=== PATIENT | male | born 1950 | race Caucasian/White ===

== ENCOUNTER 2019-01-13 13:16 | Inpatient (IN) | payer MEDICARE, OTHER ==
[2019-01-13 13:59] LABS: ADD MAN DIFF? NO
[2019-01-13 14:01] LABS: BASOPHILS % 0.3 % (0.0-2.0); EOSINOPHILS # 0.1 10^3/ul (0.0-0.5); EOSINOPHILS % 1.6 % (0.0-7.0); HEMATOCRIT 40.8 % (42.0-52.0); HEMOGLOBIN 13.5 g/dl (14.0-18.0); LYMPHOCYTES % 25.3 % (15.0-51.0); MEAN CORPUSCULAR HEMOGLOBIN 32.8 pg (29.0-33.0); MEAN CORPUSCULAR HGB CONC 33.1 g/dl (32.0-37.0); MEAN PLATELET VOLUME 10.4 fl (7.4-10.4); MONOCYTE # 0.7 10^3/ul (0.3-0.9); MONOCYTES % 8.9 % (0.0-11.0); NEUTROPHIL # 4.9 10^3/ul (1.6-7.5); NEUTROPHILS % 63.3 % (39.0-77.0); PLATELET COUNT 200 10^3/UL (140-415); RED BLOOD COUNT 4.12 10^6/ul (4.70-6.10); RED CELL DISTRIBUTION WIDTH 12.8 % (11.5-14.5)
[2019-01-13 14:01] LABS: WHITE BLOOD COUNT 7.7 10^3/ul (4.8-10.8)
[2019-01-13 14:20] LABS: INR 0.96; PROTIME 12.9 Sec (11.9-14.9)
[2019-01-13 14:21] LABS: PARTIAL THROMBOPLASTIN TIME 27.4 Sec (23.0-35.0)
[2019-01-13 14:23] LABS: ALANINE AMINOTRANSFERASE 16 IU/L (13-69); ALBUMIN/GLOBULIN RATIO 1.33; ALKALINE PHOSPHATASE 43 IU/L (42-121); ANION GAP 6 (5-13); ASPARTATE AMINO TRANSFERASE 23 IU/L (15-46); BILIRUBIN,INDIRECT 0.9 mg/dl (0-1.1); BILIRUBIN,TOTAL 0.9 mg/dl (0.2-1.3); CALCIUM 9.1 mg/dl (8.4-10.2); CARBON DIOXIDE 27 mmol/L (21-31); CHLORIDE 107 mmol/L (97-110); CHOL/HDL RATIO 3.7 RATIO; CHOLESTEROL 185 mg/dl (100-200); Estimated GFR > 60 mL/min (>60); GLUCOSE 135 mg/dl (70-220); HDL CHOLESTEROL 50 mg/dl (31-75); LDL CHOLESTEROL,CALCULATED 114 mg/dl; POTASSIUM 4.5 mmol/L (3.5-5.1); SODIUM 140 mmol/L (135-144); TRIGLYCERIDES 105 mg/dl (0-149)
[2019-01-13 14:28] LABS: BLOOD UREA NITROGEN 26 mg/dl (7-20); CREATININE 0.59 mg/dl (0.61-1.24)
[2019-01-13] MEDS ORDERED: LIDOCAINE 1% (MDV) 20 ML INJ (15:38)
[2019-01-13] MEDS ORDERED: HEPARIN 1000 UNITS/ML 10 ML INJ (15:38)
[2019-01-13] MEDS ORDERED: MIDAZOLAM 1 MG/ML 2 ML INJ (15:38)
[2019-01-13] MEDS ORDERED: FENTAnyl 50 MCG/ML VIAL (15:39)
[2019-01-13] MEDS ORDERED: NITROGLYCERIN (IC) 100 MCG/ML INJ (15:39)
[2019-01-13] MEDS ORDERED: VERAPAMIL 5 MG INJ (15:39)
[2019-01-13] MEDS ORDERED: IODIXANOL LOCM 100 ML BTL ×3 (16:38→17:25)
[2019-01-13] MEDS ORDERED: IOHEXOL 350MG/ML 50 ML BTL (16:39)
[2019-01-13] MEDS ORDERED: TICAGRELOR 90 MG TABLET (17:35)
[2019-01-13] MEDS ORDERED: ASPIRIN 325 MG TAB (17:43)
[2019-01-13] MEDS ORDERED: morphine 2 MG INJ IV (18:00)
[2019-01-13] MEDS ORDERED: ONDANSETRON 4 MG INJ IV (18:00)
[2019-01-13] MEDS ORDERED: ACETAMINOPHEN 325 MG TAB PO (18:00)
[2019-01-13] MEDS ORDERED: OXYCODONE/ACETAMINOPHEN (5/325) TAB PO (18:00)
[2019-01-13] MEDS ORDERED: AL HYDROX/MG HYDROX/SIMETH 30 ML CUP PO (18:00)
[2019-01-13] MEDS: SOD CHLORIDE 0.9% 1,000 ML IV (18:19)
[2019-01-13] MEDS: TICAGRELOR 90 MG TABLET PO (22:07)
[2019-01-13] MEDS: ZOLPIDEM 5 MG TAB PO (23:47)
[2019-01-14] MEDS: ASPIRIN (EC) 81 MG TAB PO (08:07)
[2019-01-14] MEDS: TICAGRELOR 90 MG TABLET PO ×2 (08:12→20:59)
[2019-01-14 08:44] LABS: ADD MAN DIFF? NO
[2019-01-14 08:49] LABS: WHITE BLOOD COUNT 7.8 10^3/ul (4.8-10.8)
[2019-01-14 08:49] LABS: BASOPHILS % 0.4 % (0.0-2.0); EOSINOPHILS # 0.1 10^3/ul (0.0-0.5); EOSINOPHILS % 1.4 % (0.0-7.0); HEMATOCRIT 39.1 % (42.0-52.0); HEMOGLOBIN 12.8 g/dl (14.0-18.0); LYMPHOCYTES # 1.7 10^3/ul (0.8-2.9); LYMPHOCYTES % 21.4 % (15.0-51.0); MEAN CORPUSCULAR HEMOGLOBIN 32.3 pg (29.0-33.0); MEAN CORPUSCULAR HGB CONC 32.7 g/dl (32.0-37.0); MEAN CORPUSCULAR VOLUME 98.7 fl (82.0-101.0); MONOCYTE # 0.9 10^3/ul (0.3-0.9); MONOCYTES % 10.9 % (0.0-11.0); NEUTROPHIL # 5.1 10^3/ul (1.6-7.5); NEUTROPHILS % 65.3 % (39.0-77.0); PLATELET COUNT 183 10^3/UL (140-415); RED BLOOD COUNT 3.96 10^6/ul (4.70-6.10); RED CELL DISTRIBUTION WIDTH 12.9 % (11.5-14.5)
[2019-01-14 09:08] LABS: ANION GAP 8 (5-13); BLOOD UREA NITROGEN 23 mg/dl (7-20); CALCIUM 9.1 mg/dl (8.4-10.2); CARBON DIOXIDE 29 mmol/L (21-31); CHLORIDE 105 mmol/L (97-110); CREATININE 0.74 mg/dl (0.61-1.24); Estimated GFR > 60 mL/min (>60); GLUCOSE 127 mg/dl (70-220); POTASSIUM 4.8 mmol/L (3.5-5.1); SODIUM 142 mmol/L (135-144)
[2019-01-14] MEDS: ACCU-CHEK XX ×3 (11:22→21:00)
[2019-01-14] MEDS: LINAGLIPTIN 5 MG TABLET PO (11:25)
[2019-01-14] MEDS: INSULIN ASPART [NOVOLOG] 3 ML PEN SC ×3 (11:26→21:00)
[2019-01-14] MEDS ORDERED: GLUCAGON 1 MG INJ IM (11:30)
[2019-01-14] MEDS ORDERED: GLUCOSE GEL 15 GRAM TUBE BUCCAL (11:30)
[2019-01-14] MEDS ORDERED: GLUCOSE GEL 15 GRAM TUBE PO ×2 (11:30)
[2019-01-14] MEDS ORDERED: DEXTROSE 50% 50 ML SYRINGE IV ×2 (11:30)
[2019-01-14] MEDS: LISINOPRIL 10 MG TAB PO (16:07)
[2019-01-14] MEDS: ATORVASTATIN 20 MG TAB PO (20:53)
[2019-01-14] MEDS: ZOLPIDEM 5 MG TAB PO (22:14)
[2019-01-15 06:54] LABS: ADD MAN DIFF? NO
[2019-01-15 07:02] LABS: WHITE BLOOD COUNT 7.3 10^3/ul (4.8-10.8)
[2019-01-15 07:02] LABS: BASOPHILS % 0.3 % (0.0-2.0); EOSINOPHILS # 0.1 10^3/ul (0.0-0.5); EOSINOPHILS % 1.8 % (0.0-7.0); HEMATOCRIT 39.2 % (42.0-52.0); HEMOGLOBIN 13.1 g/dl (14.0-18.0); LYMPHOCYTES # 1.5 10^3/ul (0.8-2.9); LYMPHOCYTES % 20.7 % (15.0-51.0); MEAN CORPUSCULAR HEMOGLOBIN 32.7 pg (29.0-33.0); MEAN CORPUSCULAR HGB CONC 33.4 g/dl (32.0-37.0); MEAN CORPUSCULAR VOLUME 97.8 fl (82.0-101.0); MEAN PLATELET VOLUME 10.4 fl (7.4-10.4); MONOCYTE # 0.8 10^3/ul (0.3-0.9); NEUTROPHIL # 4.8 10^3/ul (1.6-7.5); NEUTROPHILS % 65.4 % (39.0-77.0); PLATELET COUNT 178 10^3/UL (140-415); RED BLOOD COUNT 4.01 10^6/ul (4.70-6.10); RED CELL DISTRIBUTION WIDTH 12.7 % (11.5-14.5)
[2019-01-15 07:19] LABS: ANION GAP 9 (5-13); BLOOD UREA NITROGEN 20 mg/dl (7-20); CALCIUM 9.1 mg/dl (8.4-10.2); CARBON DIOXIDE 25 mmol/L (21-31); CHLORIDE 107 mmol/L (97-110); CREATININE 0.57 mg/dl (0.61-1.24); Estimated GFR > 60 mL/min (>60); GLUCOSE 144 mg/dl (70-220); MAGNESIUM 1.7 mg/dl (1.7-2.5); POTASSIUM 4.1 mmol/L (3.5-5.1); SODIUM 141 mmol/L (135-144)
[2019-01-15] MEDS: INSULIN ASPART [NOVOLOG] 3 ML PEN SC ×4 (07:24→20:17)
[2019-01-15] MEDS: ACCU-CHEK XX ×4 (07:24→20:17)
[2019-01-15 07:46] LABS: HEMOGLOBIN A1C 6.8 % (0-5.9)
[2019-01-15] MEDS: LISINOPRIL 10 MG TAB PO (08:25)
[2019-01-15] MEDS: LINAGLIPTIN 5 MG TABLET PO (08:26)
[2019-01-15] MEDS: ASPIRIN (EC) 81 MG TAB PO (08:26)
[2019-01-15] MEDS: TICAGRELOR 90 MG TABLET PO ×2 (08:28→20:17)
[2019-01-15] MEDS ORDERED: LIDOCAINE 1% (MDV) 20 ML INJ (10:27)
[2019-01-15] MEDS ORDERED: BIVALIRUDIN 250MG /NS 50 ML 50 ML IVPB (10:27)
[2019-01-15] MEDS ORDERED: IODIXANOL LOCM 100 ML BTL ×2 (10:27→11:40)
[2019-01-15] MEDS ORDERED: MIDAZOLAM 1 MG/ML 2 ML INJ (10:28)
[2019-01-15] MEDS ORDERED: FENTAnyl 50 MCG/ML VIAL (10:28)
[2019-01-15] MEDS ORDERED: NITROGLYCERIN (IC) 100 MCG/ML INJ ×2 (10:28→10:43)
[2019-01-15] MEDS ORDERED: IOHEXOL 350MG/ML 50 ML BTL (11:40)
[2019-01-15] MEDS ORDERED: ONDANSETRON 4 MG INJ IV (13:00)
[2019-01-15] MEDS ORDERED: ZOLPIDEM 5 MG TAB PO (13:00)
[2019-01-15] MEDS ORDERED: ACETAMINOPHEN 325 MG TAB PO (13:00)
[2019-01-15] MEDS ORDERED: morphine 2 MG INJ IV (13:00)
[2019-01-15] MEDS ORDERED: AL HYDROX/MG HYDROX/SIMETH 30 ML CUP PO (13:00)
[2019-01-15] MEDS ORDERED: OXYCODONE/ACETAMINOPHEN (5/325) TAB PO (13:00)
[2019-01-15] MEDS: BIVALIRUDIN 250MG /NS 50 ML 50 ML IVPB (14:00)
[2019-01-15] MEDS: SOD CHLORIDE 0.9% 1,000 ML IV (14:24)
[2019-01-15] MEDS: ATORVASTATIN 20 MG TAB PO (20:17)
[2019-01-15] MEDS: ZOLPIDEM 5 MG TAB PO (23:20)
[2019-01-16 05:55] LABS: ADD MAN DIFF? NO
[2019-01-16 05:57] LABS: WHITE BLOOD COUNT 7.9 10^3/ul (4.8-10.8)
[2019-01-16 05:57] LABS: BASOPHILS % 0.3 % (0.0-2.0); EOSINOPHILS # 0.2 10^3/ul (0.0-0.5); HEMATOCRIT 37.3 % (42.0-52.0); HEMOGLOBIN 12.4 g/dl (14.0-18.0); LYMPHOCYTES # 1.6 10^3/ul (0.8-2.9); LYMPHOCYTES % 19.7 % (15.0-51.0); MEAN CORPUSCULAR HEMOGLOBIN 32.7 pg (29.0-33.0); MEAN CORPUSCULAR HGB CONC 33.2 g/dl (32.0-37.0); MEAN CORPUSCULAR VOLUME 98.4 fl (82.0-101.0); MEAN PLATELET VOLUME 10.5 fl (7.4-10.4); MONOCYTES % 13.2 % (0.0-11.0); PLATELET COUNT 185 10^3/UL (140-415); RED BLOOD COUNT 3.79 10^6/ul (4.70-6.10); RED CELL DISTRIBUTION WIDTH 12.7 % (11.5-14.5)
[2019-01-16 06:33] LABS: ANION GAP 6 (5-13); BLOOD UREA NITROGEN 23 mg/dl (7-20); CARBON DIOXIDE 26 mmol/L (21-31); CHLORIDE 109 mmol/L (97-110); CREATINE KINASE 116 IU/L (23-200); CREATININE 0.71 mg/dl (0.61-1.24); Estimated GFR > 60 mL/min (>60); GLUCOSE 136 mg/dl (70-220); POTASSIUM 4.1 mmol/L (3.5-5.1); SODIUM 141 mmol/L (135-144)
[2019-01-16 06:35] LABS: CK INDEX 1.9; CK-MB 2.26 ng/ml (0.0-2.4)
[2019-01-16] MEDS: INSULIN ASPART [NOVOLOG] 3 ML PEN SC ×3 (07:36→17:38)
[2019-01-16] MEDS: ACCU-CHEK XX ×3 (07:36→17:25)
[2019-01-16] MEDS: TICAGRELOR 90 MG TABLET PO (08:04)
[2019-01-16] MEDS: ASPIRIN (EC) 81 MG TAB PO (08:05)
[2019-01-16] MEDS: LINAGLIPTIN 5 MG TABLET PO (08:05)
[2019-01-16] MEDS: LISINOPRIL 10 MG TAB PO (08:06)
[2019-01-16] MEDS ORDERED: morphine LIQ (10 MG/5 ML) CUP PO (17:30)
== END 2019-01-16 18:50 | disposition home or self-care (01) | DRG 246 ==
LOC: SDS 13:16 → TEL 21:08
PROC: 027036Z Dilation of Coronary Artery, One Artery with Three Drug-eluting Intraluminal Devices, Percutaneous Approach (ICD-10-PCS; principal; 2019-01-13 15:30)
PROC: 4A023N7 Measurement of Cardiac Sampling and Pressure, Left Heart, Percutaneous Approach (ICD-10-PCS; 2019-01-13 15:30)
PROC: B211YZZ Fluoroscopy of Multiple Coronary Arteries using Other Contrast (ICD-10-PCS; 2019-01-13 15:30)
PROC: 027135Z Dilation of Coronary Artery, Two Arteries with Two Drug-eluting Intraluminal Devices, Percutaneous Approach (ICD-10-PCS; 2019-01-13 16:01)
PROC: 02703ZZ Dilation of Coronary Artery, One Artery, Percutaneous Approach (ICD-10-PCS; 2019-01-13 16:01)
PROC: 4A023N7 Measurement of Cardiac Sampling and Pressure, Left Heart, Percutaneous Approach (ICD-10-PCS; 2019-01-13 16:01)
PROC: B211YZZ Fluoroscopy of Multiple Coronary Arteries using Other Contrast (ICD-10-PCS; 2019-01-13 16:01)
DX: I25.119 Atherosclerotic heart disease of native coronary artery with unspecified angina pectoris (principal); I10 Essential (primary) hypertension; E78.5 Hyperlipidemia, unspecified; E11.9 Type 2 diabetes mellitus without complications
CPT/HCPCS: 71045; 80048; 80053; 80061; 82550; 82553; 82962; 83036; 83735; 84484; 85025; 85610; 85730; 92920; 93005; 93458